=== PATIENT | male | born 1965 | race Caucasian/White ===

== ENCOUNTER → 2016-09-18 | Outpatient (CLI) | payer OTHER | LOC: KOH-I 09:15 | DX: M25.561 Pain in right knee (principal); M79.674 Pain in right toe(s) | CPT/HCPCS: 73562; 73630 ==

== ENCOUNTER → 2020-10-10 | Outpatient (CLI) | payer OTHER | LOC: KOH-I 08:20 | DX: R07.9 Chest pain, unspecified (principal); I10 Essential (primary) hypertension; I34.1 Nonrheumatic mitral (valve) prolapse; E11.9 Type 2 diabetes mellitus without complications; K04.7 Periapical abscess without sinus; R20.2 Paresthesia of skin; D72.829 Elevated white blood cell count, unspecified | CPT/HCPCS: 71046 ==

== ENCOUNTER → 2020-10-11 | Outpatient (CLI) | payer OTHER | LOC: EXRD 07:55 | DX: I05.8 Other rheumatic mitral valve diseases (principal) | CPT/HCPCS: 93975 ==

== ENCOUNTER → 2020-10-21 | Outpatient (CLI) | payer OTHER | LOC: ECHO 09:33 | DX: R07.9 Chest pain, unspecified (principal); I34.1 Nonrheumatic mitral (valve) prolapse; E11.9 Type 2 diabetes mellitus without complications; I10 Essential (primary) hypertension; D72.829 Elevated white blood cell count, unspecified; R20.2 Paresthesia of skin; K04.7 Periapical abscess without sinus | CPT/HCPCS: ECHO; 93306 ==